=== PATIENT | male | born 1960 | race Caucasian/White ===

== ENCOUNTER 2018-07-29 22:57 | Emergency (ER) | payer OTHER ==
[~2018-07-29] VITALS: Ht 172.7 cm; Wt 97.5 kg
[2018-07-29 23:00] VITALS: BP_SYST 143
[2018-07-29] MEDS ORDERED: KETOROLAC TROMETHAMINE 60 MG/2 ML VIAL IM ONE (23:30)
[2018-07-29 23:43] VITALS: BP_SYST 137
== END 2018-07-29 23:43 | disposition home or self-care (01) ==
LOC: SED 22:57
DX: S16.1XXA Strain of muscle, fascia and tendon at neck level, initial encounter (principal); E11.9 Type 2 diabetes mellitus without complications; R03.0 Elevated blood-pressure reading, without diagnosis of hypertension; X58.XXXA Exposure to other specified factors, initial encounter; Y93.89 Activity, other specified; Y92.89 Other specified places as the place of occurrence of the external cause; Y99.8 Other external cause status
CPT/HCPCS: 82962; 96372; 99283; J1885

== ENCOUNTER 2024-05-10 07:57 | Day surgery (SDC) | payer OTHER ==
[~2024-05-10] VITALS: Ht 172.7 cm; Wt 104.3 kg
[2024-05-10] MEDS ORDERED: SIMETHICONE 40 MG/0.6 ML ML ONE (08:11)
[2024-05-10] MEDS ORDERED: MIDAZOLAM HCL 5 MG/5 ML VIAL ONE ×2 (08:11→09:17)
[2024-05-10] MEDS ORDERED: MEPERIDINE 100 MG INJ. 100 MG/ML VIAL ONE (08:11)
[2024-05-10 09:00] VITALS: O2SAT 96
[2024-05-10 13:48] VITALS: BP_SYST 111; PULSE 79; RESP 20
== END 2024-05-10 10:21 | disposition home or self-care (01) ==
LOC: SDS 07:57 → SMU 08:01 → SDS 10:21
PROVIDERS: ATTEND Student in an Organized Health Care Education/Training Program
DX: Z12.11 Encounter for screening for malignant neoplasm of colon (principal); K62.1 Rectal polyp; K64.4 Residual hemorrhoidal skin tags; K64.8 Other hemorrhoids; I10 Essential (primary) hypertension; E11.9 Type 2 diabetes mellitus without complications; Z79.82 Long term (current) use of aspirin; Z79.84 Long term (current) use of oral hypoglycemic drugs; Z79.899 Other long term (current) drug therapy; Z80.0 Family history of malignant neoplasm of digestive organs
CPT/HCPCS: 45385; 99152; 82948; 88305; G0378; J2250; J2175